=== PATIENT | female | born 1970 | race Caucasian/White ===

== ENCOUNTER 2019-09-22 10:23 | Outpatient (CLI) | payer BC, SELFPAY ==
--- NOTE | 2019-09-25 14:29 | WPDPFTINT ---
PFT Interpretation PFT Interpretation: This PFT met all criteria for ATS standards and reproducibility FEV/FVC post bronchodilator 87% FEV1 91% FVC 80% TLC 85% RV 88% RV/TLC 36% DLCO 50% or 12.8 literswhen adjusted for alveolar volume but not adjusted for hemoglobin Flow volume loops were normal Impression: Moderate reduced diffusion capacity without significant obstruction or restriction. In the abcence of anemia or pulmonary hypertension, intrinsic lung disease may be present. Clinical correlation is advised.
== END 2019-09-22 10:24 | disposition home or self-care (01) ==
LOC: ANHPFT 10:24
PROVIDERS: PCP Internal Medicine; Visit Provider Internal Medicine Critical Care Medicine
DX: R05 Cough (principal); R06.02 Shortness of breath; R94.2 Abnormal results of pulmonary function studies
CPT/HCPCS: 94060; 94726; 94729

== ENCOUNTER 2019-10-14 17:04 | Outpatient (CLI) | payer BC, SELFPAY ==
--- NOTE | ~2019-10-14 | CT_ITS ---
EXAMINATION: CT chest wo con DATE: 10/14/2019 17:39 INDICATION: Chronic cough TECHNIQUE: Computed tomography (CT) of the chest was performed without intravenous contrast. The dose -length product was 486.93 mGy-cm. Automated exposure control and iterative reconstruction technique were employed. COMPARISON: None FINDINGS: No thoracic lymphadenopathy. Heart size normal. No significant vascular abnormality. No ple ural or pericardial effusion. There are subtle right upper lobe groundglass opacities. No endobronchi al lesions. Mild thoracic spondylosis. No acute osseous abnormality. IMPRESSION: 1. Subtle patchy right upper lobe groundglass opacities, most likely infectious/inflammatory. Reviewed, dictated and finalized at location A. IMPRESSION: 1. Subtle patchy right upper lobe groundglass opacities, most likely infectious /inflammatory.
== END 2019-10-14 17:05 | disposition home or self-care (01) ==
LOC: ANHIMG 17:11
PROVIDERS: PCP Internal Medicine; Visit Provider Nurse Practitioner Family
DX: R05 Cough (principal)
CPT/HCPCS: 71250

== ENCOUNTER 2019-10-25 12:44 | Outpatient (CLI) | payer BC, SELFPAY ==
--- NOTE | ~2019-10-25 | XR_ITS ---
EXAMINATION: XR chest 2V DATE: 10/25/2019 13:02 INDICATION: Shortness of breath TECHNIQUE: Frontal and lateral views of the chest are obtained COMPARISON: 06/18/2019 FINDINGS: There are subtle opacities of the right lung. There is no pleural effusion or pneumothorax. The cardiomediastinal silhouette is normal. There is mild thoracic spondylosis. IMPRESSION: 1. Subtle opacity of the right lung, likely infectious or inflammatory. Recommend followup radiograph s in 10-14 days after appropriate therapy to evaluate for improvement/resolution. Reviewed, dictated and finalized at location B. IMPRESSION: 1. Subtle opacity of the right lung, likely infectious or inflammatory. Recomme nd followup radiographs in 10-14 days after appropriate therapy to evaluate for improvement/resolution.
--- NOTE | ~2019-10-25 | NM_ITS ---
NM lung vent and perfusion INDICATION: Loss of breath TECHNIQUE: The patient inhaled aerosolized 8.9 mCi xenon-133. Following ventilation scan, 5 mCi Tc 9 9m MAA was injected intravenously for perfusion images. Multiple images were then acquired. COMPARISON: Chest x-ray dated 10/25/2019 FINDINGS: The comparison chest radiograph demonstrates no pulmonary infiltrates or pleural fluid. Th e perfusion scan is normal. The aerosol in images show uniform deposition throughout the lungs. IMPRESSION: 1: Normal ventilation and perfusion images. Reviewed, dictated and finalized at location A.
== END 2019-10-25 12:45 | disposition home or self-care (01) ==
PROVIDERS: PCP Internal Medicine; Visit Provider Internal Medicine Critical Care Medicine
DX: R06.02 Shortness of breath (principal)
CPT/HCPCS: 71046; 78582; A9540; A9558

== ENCOUNTER 2019-11-01 13:35 | Outpatient (CLI) | payer BC, SELFPAY ==
--- NOTE | 2019-11-01 13:45 | ECHO_ITS ---
Patient Info Name: Laurel Whittaker Age: 49 years : 1970 Gender: Female Ht: 62 in Wt: 220 lbs BSA: 2.14 m2 HR: 63 bpm BP: 131 / 95 mmHg Technical Quality: Good Exam Date: 11/01/2019 2:08 PM Exam Location: [facility] Patient Status: Outpatient Admit Date: 11/01/2019 Staff Ordering Physician: Maisha Monahan MD Frame Stylist: Newton Ayon RDCS, RT Attending Provider: Maisha Monahan MD Referring Physician: Hero DENNEY; Exam Type: CA echo doppler color flow Study Info Indications R06.02 - Shortness of breath Complete two-dimensional, color flow and Doppler transthoracic echocardiogram is performed. Summary 1. Left ventricular chamber dimension is normal. 2. Left ventricular systolic function is normal, estimated at 60-65%. 3. The left ventricular diastolic function is grade II diastolic dysfunction. 4. E/e' 8 is minimally elevated. 5. There is mild to moderate aortic valve regurgitation. Left Ventricle E/e' 8 is minimally elevated. Left ventricular chamber dimension is normal. Left ventricular systolic function is normal, estimated at 60-65%. The left ventricular diastolic function is grade II diastolic dysfunction. Right Ventricle Right ventricular chamber dimension is normal. Right ventricular systolic function is normal. Left Atria Left atrial chamber dimension is normal. Right Atria Right atrial chamber dimension is normal. Aortic Valve The aortic valve is trileaflet. There is no aortic valve stenosis. There is mild to moderate aortic valve regurgitation. Pulmonic Valve There is no pulmonic regurgitation. Mitral Valve There is no mitral valve stenosis. There is no mitral valve regurgitation. Tricuspid Valve There is no tricuspid valve regurgitation. Pericardium/Pleural There is no pericardial effusion. Inferior Vena Cava Normal inferior vena cava with >50% collapse upon inspiration consistent with normal right atrial pressure, 5 mmHg. Aorta The aortic root size at the sinus of Valsalva is normal. Left Ventricular Outflow Tract Name Value Normal LVOT 2D LVOT Diameter 1.9 cm LVOT Doppler LVOT Peak Gradient 7 mmHg LVOT Mean Gradient 3 mmHg LVOT VTI 23 cm LVOT VTI/AV VTI Ratio 0.8 LVOT Stroke Volume 67 ml LVOT CO 6.7 l/min LVOT CI 3.1 l/min/m2 Pulmonic Valve Name Value Normal PV Doppler PV Peak Gradient 3 mmHg Mitral Valve Name Value Normal MV Doppler
== END 2019-11-01 13:36 | disposition home or self-care (01) ==
PROVIDERS: PCP Internal Medicine; Visit Provider Internal Medicine Critical Care Medicine
DX: R06.02 Shortness of breath (principal)
CPT/HCPCS: 93306

== ENCOUNTER 2019-11-08 14:10 | Outpatient (CLI) | payer BC, SELFPAY ==
--- NOTE | ~2019-11-08 | XR_ITS ---
XR chest 2V DATE: 11/08/2019 14:35 INDICATION: Subtle radiographic opacity of right lung reported on 10/24/2021 view chest radiographic e xamination TECHNIQUE: PA and lateral views COMPARISON: 10/21/2019 PA and lateral chest FINDINGS: Normal heart size. No hilar or mediastinal enlargement. No pulmonary infiltrate or consolid ation, pleural effusion or pulmonary vascular congestion or pneumothorax. IMPRESSION: Negative Reviewed, dictated and finalized at location A. IMPRESSION: Negative
== END 2019-11-08 14:11 | disposition home or self-care (01) ==
LOC: ANHIMG 14:14
PROVIDERS: PCP Internal Medicine; Visit Provider Internal Medicine Critical Care Medicine
DX: R93.89 Abnormal findings on diagnostic imaging of other specified body structures (principal)
CPT/HCPCS: 71046

== ENCOUNTER 2019-12-26 00:25 | Outpatient (CLI) | payer BC, SELFPAY ==
[2019-12-26 16:10] LABS: SARS-CoV-2 RNA PCR Negative
== END 2019-12-26 00:26 | disposition home or self-care (01) ==
LOC: ANHCOVIDDT 00:25
PROVIDERS: PCP Internal Medicine; Visit Provider Internal Medicine Critical Care Medicine
DX: R05 Cough (principal); Z20.828 Contact with and (suspected) exposure to other viral communicable diseases
CPT/HCPCS: 87635; C9803; U0003

== ENCOUNTER 2019-12-28 01:44 | Day surgery (SDC) | payer BC, SELFPAY ==
[2019-12-22 10:34] VITALS: BMI 39.7
[2019-12-28] VITALS (7 sets, daily range): BP systolic 118–137; BP diastolic 51–87; PULSE 70–93; RESP 16–26; TEMP 36.4–36.7; O2SAT 97–100; BMI 39.9
--- NOTE | 2019-12-28 09:26 | P.PNAN_ITS ---
Anes - Initial Pre Proc Eval Procedure: Operation Date: 12/28/19 12:00 Proposed Procedures p Bronchoscopy - Maisha Monahan MD Date/Time: 12/28/19 09:26 Surgeon: Maisha Monahan MD Pre Op Diagnosis: Chronic Cough Patient Data Age: 49 Gender: F Height: 5 ft 2 in Weight: 98.6 kg Allergies Allergy/AdvReac Type Severity Reaction Status Date / Time amoxicillin Allergy Mild Itching, Verified 12/28/19 10:48 rash Home Medications Medication Instructions Recorded Confirmed Type budesonide-formoterol [Symbicort] 2 puff INHALATION Q12H PRN 12/22/19 12/28/19 History ibuprofen 200 mg PO Q6H PRN 12/22/19 12/28/19 History Patient hx anesthesia problems: none Family hx anesthesia problems: none [facility] Past Medical History Medical History (Updated 12/28/19 @ 09:26 by Hossein Flor MD) Asthma Elevated liver enzymes Migraine Surgical History Surgical History H/O tubal ligation Social History Social History Smoking status: Never smoker Second hand tobacco smoke exposure: No Alcohol intake: never Anes - Eval Final PreProcedure Day of Procedure 12/28/19 09:26 Patient weight: overweight Heart: regular rate and rhythm Lungs: clear to auscultation Airway: Mallampati scale class III Neurological: alert and oriented Last oral intake: >/= 8 hours ASA classification: III Emergent: no Anesthetic plan: proceed Anesthesia type and monitoring: general ETT and standard monitoring Informed Consent: The patient's anesthetic plan and its attendant risks and benefits were discussed with the patient/family/POA. Questions were solicited and answers provided to the satisfaction of the patient/family/POA.
[2019-12-28] MEDS: LACTATED RINGERS 1,000 ML 150 ML IV CONT (11:12)
--- NOTE | 2019-12-28 12:54 | SUR.OPER ---
Lidocaine 2% 6 ml injected and 250 ml NS injected during bronchoscopy - 107 ml returned from washing
[2019-12-28 14:33] LABS: Appearance Bronchial Fluid Cloudy; Color Bronchial Fluid Colorless; Lymphocytes Bronchial Fluid 30 %; Monocytes Bronchial Fluid 3 %; Neutrophils Bronchial Fluid 18 %; Source Bronchial Fluid Bronchial Lavage
[2019-12-28 14:34] LABS: Macrophages Bronchial Fluid 8; Other Cells Bronchial Fluid 41 %
[2020-01-01 04:34] LABS: Herpes Simplex Type 1 DNA PCR Not Detected (Not Detected); Herpes Simplex Type 2 DNA PCR Not Detected (Not Detected)
== END 2019-12-28 14:04 | disposition home or self-care (01) ==
PROVIDERS: PCP Internal Medicine; Visit Provider Internal Medicine Critical Care Medicine
PROC: 0BJ08ZZ Inspection of Tracheobronchial Tree, Via Natural or Artificial Opening Endoscopic (ICD-10-PCS; CPT 31622; principal; 2019-12-28 12:00)
DX: R05 Cough (principal); J45.909 Unspecified asthma, uncomplicated; I35.1 Nonrheumatic aortic (valve) insufficiency
CPT/HCPCS: 31624; 36415; 85999; 87015; 87070; 87075; 87102; 87116; 87205; 87206; 87252; 87529; J1100; J2405; J2704; J7120

== ENCOUNTER 2020-01-17 15:30 | Outpatient (CLI) | payer BC, SELFPAY ==
--- NOTE | ~2020-01-17 | XR_ITS ---
EXAMINATION: XR chest 2V DATE: 01/17/2020 15:59 INDICATION: Asthma presenting with cough TECHNIQUE: PA and lateral views of the chest were obtained. COMPARISON: Chest radiograph dated 11/08/2019 FINDINGS: The lungs remain clear with no focal airspace opacities, pulmonary edema, pleural effusion or pneumot horax. The cardiomediastinal silhouette is normal. Visualized bones and soft tissues are unremarkable . IMPRESSION: 1. Normal chest radiograph. Reviewed, dictated and finalized at location A. IMPRESSION: 1. Normal chest radiograph.
== END 2020-01-17 15:31 | disposition home or self-care (01) ==
PROVIDERS: PCP Internal Medicine; Visit Provider Internal Medicine Critical Care Medicine
DX: J45.909 Unspecified asthma, uncomplicated (principal)
CPT/HCPCS: 71046

== ENCOUNTER 2020-02-29 01:07 | Outpatient (CLI) | payer BC, SELFPAY ==
[2020-02-29 19:19] LABS: SARS-CoV-2 RNA PCR Negative
== END 2020-02-29 01:08 | disposition home or self-care (01) ==
LOC: ANHCOVIDDT 01:07
PROVIDERS: Internal Medicine Critical Care Medicine; PCP Internal Medicine; Visit Provider Internal Medicine Gastroenterology
DX: Z01.818 Encounter for other preprocedural examination (principal); Z11.59 Encounter for screening for other viral diseases
CPT/HCPCS: 87635; C9803; U0003

== ENCOUNTER 2020-03-02 13:41 | Observation (INO) | payer BC, SELFPAY ==
[2020-02-22 09:18] VITALS: BMI 39.5
[2020-03-02] VITALS (30 sets, daily range): BP systolic 89–167; BP diastolic 45–125; PULSE 81–156; RESP 16–45; TEMP 36.2–36.7; O2SAT 89–100
--- NOTE | ~2020-03-02 | CT_ITS ---
EXAMINATION: CTA chest PE protocol DATE: 03/02/2020 18:11 CDT INDICATION: Cough and shortness of breath. Anxiety. TECHNIQUE: Computed tomographic angiography (CTA) of the chest was performed with 100 mL Omnipaque-35 0 intravenous contrast. The dose-length product was 832.36 mGy-cm. Maximum intensity projection 3D-re constructions of the aorta and other arteries were constructed by the technologist on a separate work station. Automated exposure control and iterative reconstruction technique were employed. COMPARISON: CT dated 10/14/2019 FINDINGS: The study is technically adequate without evidence for pulmonary artery. Heart size normal. No thoracic lymphadenopathy. No significant pleural or pericardial effusion. Bilateral lower lobe at electasis. No pneumothorax. No endobronchial lesions. No acute osseous abnormality. The upper abdomen is unremarkable. IMPRESSION: 1. No evidence for pulmonary embolism. 2: Bilateral lower lobe atelectasis. Reviewed, dictated and finalized at location A.
--- NOTE | ~2020-03-02 | XR_ITS ---
EXAMINATION: XR chest 1V portable EXAM DATE: 03/02/2020 11:38 INDICATION: Cough post anesthesia. TECHNIQUE: Portable AP frontal chest x-ray was obtained. Comparison is made to prior examination from 01/17/2020. FINDINGS: The lungs are clear. There are no pleural effusions. The cardiomediastinal silhouette is within normal limits. There is no pneumothorax suspected. The bones and soft tissues are unremarkab le. IMPRESSION: No acute cardiopulmonary findings. Reviewed, dictated and finalized at location A.
--- NOTE | 2020-03-02 07:40 | P.PNAN_ITS ---
Anes - Initial Pre Proc Eval Procedure: Operation Date: 03/02/20 09:45 Proposed Procedures p Esophagogastroduodenoscopy And Screening Colonoscopy - Jonathan Clemens MD Date/Time: 03/02/20 07:40 Surgeon: Jonathan Ryan MD Pre Op Diagnosis: Chronic Cough/ Neoplasm Screening Patient Data Age: 50 Gender: F Height: 1.57 m Weight: 98 kg Allergies Allergy/AdvReac Type Severity Reaction Status Date / Time amoxicillin Allergy Mild Itching, Verified 03/02/20 08:50 rash Home Medications Medication Instructions Recorded Confirmed Type budesonide-formoterol [Symbicort] 2 puff INHALATION Q12H PRN 12/22/19 02/22/20 History ibuprofen 200 mg PO Q6H PRN 12/22/19 02/22/20 History gabapentin 100 mg capsule 100 mg PO TID 30 Days #90 cap 01/17/20 02/22/20 Rx Patient hx anesthesia problems: none Family hx anesthesia problems: none PMFSH Past Medical History Medical History (Updated 03/02/20 @ 07:41 by Dae Neal MD) Aortic regurgitation Asthma Colon cancer screening Elevated LFTs Elevated liver enzymes Migraine Obesity Surgical History Surgical History H/O tubal ligation Social History Social History Smoking status: Never smoker Second hand tobacco smoke exposure: No Alcohol intake: never Substance use: never 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 Questions were solicited and answers provided to the satisfaction of the patient/family/POA.
[2020-03-02] MEDS: LACTATED RINGERS 1,000 ML 150 ML IV CONT (09:04)
--- NOTE | 2020-03-02 09:28 | WPDHPUPDATE1 ---
History and Physical Update Update Date/Time: 03/02/20 09:28 History and Physical has been reviewed, including an updated exam of the patient. There are NO changes in the patient's condition. Risks, benefits, and alternatives have been discussed and questions answered. Patient agrees to proceed with procedure.
[2020-03-02] MEDS: MIDAZOLAM HCL 2 MG/2 ML VIAL 1 MG IV PUSH ×2 (10:55→11:12)
[2020-03-02] MEDS: ALBUTEROL SULFATE (*SP) AEROSOL 1 PUFF 2 PUFF INHALATION (11:04)
[2020-03-02] MEDS: ALBUTEROL SULFATE NEB 2.5 MG/3 ML INH 1.25 MG INHALATION (11:12)
[2020-03-02] MEDS: MIDAZOLAM HCL 2 MG/2 ML VIAL IV PUSH ×2 (11:12→12:04)
--- NOTE | 2020-03-02 11:31 | ECG_ITS ---
Measurements Intervals [place] Rate: 103 P: 52 ID: [id number] QRS: 29 QRSD: 80 T: 37 QT: 326 QTc: 428 Interpretive Statements SINUS TACHYCARDIA BASELINE ARTIFACT- I, II, III, AVR, AVL, AVF, V1 BORDERLINE ECG Electronically Signed On 03-02-2020 16:23:30 CDT by David Mendoza D.O.
--- NOTE | 2020-03-02 12:32 | SUR.PHASEII ---
Addendum entered by Tosin Ruiz RN 03/02/20 13:15: NO ARTERIAL BLOOD GAS NEEDED PER DR DIAZ. Original Note: PT WOKE UP IN RECOVERY COUGHING, SHORT OF BREATH. PT 100% ON ROOM AIR VITAL SIGNS STABLE. ALBUTEROL INHALER GIVEN BY DR DIAZ ANESTHESIA WITH NO RELIEF. NEBULIZER TREATMENT GIVEN BY RESPIRATORY THERAPY WITH NO RELIEF. FENTANYL AND VERSED ORDERED BY DR DIAZ (SEE MAR) WITH SOME RELIEF, PT APPEARS MORE CALM. PT'S AT BEDSIDE. PT COMPLAINS OF CHEST PAIN EKG ORDERED RESULTS GIVEN TO DR DIAZ. CXR DONE AT BEDSIDE ORDERED BY DR SALDIVAR. DESPITE MEDICATION PT CONTINUES WITH SHORTNESS OF BREATH. ORDER FROM DR SALDIVAR TO ADMIT TO IMU.
--- NOTE | 2020-03-02 12:49 | PC.NURSE ---
This patient, Laurel Whittaker, was admitted to IMU Room 207-01. Patient/family oriented to hospital policies and general routines including ID bracelet, bed and alarms, visiting hours, pain management, procedures, bathroom and other care routines, personal items, smoking policy, room service/diet, and visiting hours. Valuables list has been completed. Information on how to activate the Rapid Response Team has been discussed. Patient/Family are encouraged to report perceived risks to care and to ask questions if they do not understand what they are told or what they should do.
--- NOTE | 2020-03-02 12:53 | WPDGICN ---
Assessment and Plan Assessment and plan (1) Hyperventilating: Code(s): R06.4 - Hyperventilation Status: Acute Assessment and Plan: cxr and ekg unrevealing. She will be admitted to hospitalist service for monitoring and diagnostic procedure as indicated no obvious complications with endoscopy, only took biopsies and colonoscopy was unremarkable (2) Chest discomfort: Code(s): R07.89 - Other chest pain Status: Acute Assessment and Plan: will admit to [facility] for treatment and monitoring aware of plan (3) Cough: Code(s): R05 - Cough Status: Acute Assessment and Plan: work up has been negative, may need ent evaluation at some point GI Consult Note Consult date/time: 03/02/20 12:53 Reason for consult: hyperventilation and cough after elective EGD/colonoscopy HPI: Laurel Whittaker is a 50 year old female with chronic cough that had extensive work up by pulmonary including CT chest and bronchoscopy, also trial of inhalers and nexium did not help, finally she came to see me at the office and we decided to proceed today with EGD to assess for silent reflux among other GI conditions, she also had a colonoscopy today for colon cancer screening given her age. EGD without any findings, only took random biopsies of esophagus and stomach but no complications, then proceed with colonoscopy that was normal, only mild diverticulosis. During her procedure she did quite well. Soon after procedure and when she was taken to recovery room and woke up from anesthesia (we used MAC anesthesia given by anesthesiologist) she started with intractable cough, hyperventilating. Respiratory therapist gave breathing treatment but did not help, then given more versed but symptoms got worse, then having chest discomfort. CXR was normal, EKG sinus tachycardia. Given persistent symptoms for more than 1.5 hours after endoscopy, we decided to keep her in the hospital for observation. This was discussed with at bedside. He denies that she has h/o panick attack. 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 Home Medications and Allergies Home Medications Medication Instructions Recorded Confirmed Type budesonide-formoterol [Symbicort] 2 puff INHALATION Q12H PRN 12/22/19 02/22/20 History ibuprofen 200 mg PO Q6H PRN 12/22/19 02/22/20 History gabapentin 100 mg capsule 100 mg PO TID 30 Days #90 cap 01/17/20 02/22/20 Rx Allergies Allergy/AdvReac Type Severity Reaction Status Date / Time amoxicillin Allergy Mild Itching, Verified 03/02/20 08:50 rash Vital Signs Vital Signs - 24 hr 03/02/20 08:52 03/02/20 11:00 03/02/20 11:10 Temperature 97.5 F L Pulse Rate 95 147 H 134 H Respiratory Rate 20 42 H 36 H Blood Pressure 133/97 H Pulse Oximetry 97 Exam Const: General: uncomfortable Other: hyperventilating with RR ~ 35-40 but normal O2 sat 100% HENMT: General nose exam: Normal nares present Eyes: General: appearance normal, both eyes and all related structures Neck: Neck: no JVD Chest: Other: normal exam, no crepitus, no subcutaneous emphysema Resp: Auscultation: no rales and no rhonchi Other: normal auscultation but she is tachypneic Cardio: Other: sinus tach GI: Inspectio
[2020-03-02] MEDS: NALOXONE HCL 0.4 MG/ML VIAL IV PUSH (13:22)
[2020-03-02 13:35] LABS: Alveolar/Arterial O2 Gradient 426.5 mmHg; Base Excess ABG -0.4 mEq/l (+/-2.0); Fractional Inspired Oxygen 100 %; HCO3 ABG 15.3 mEq/l (22.0-26.0); Oxygen Content ABG 23.7 %vol (16.0-22.0); Oxygen Saturation ABG 99.8 % (95.0-100.0); Oxyhemoglobin 98.6 % THb (90.0-100.0); PO2 ABG 273.3 mmHg (80.0-100.0); PO2 FiO2 Ratio Arterial Blood 2.73 %; Total Hemoglobin 16.7 g/dL (12.0-18.0)
[2020-03-02 13:36] LABS: Device NON-REBREATHER MASK; Modified Allen's Test Pass; PCO2 ABG 13.2 mmHg (35.0-45.0); Site Drawn RIGHT RADIAL; pH ABG 7.683 (7.350-7.450)
[2020-03-02 13:48] LABS: Troponin I < 0.012 ng/mL (0.000-0.034)
[2020-03-02] MEDS: methylPREDNISolone SOD SUCC 125 MG VIAL (13:52)
[2020-03-02] MEDS: FUROSEMIDE INJ 40 MG/4 ML VIAL (13:52)
[2020-03-02] MEDS: SODIUM BICARBONATE 8.4% 50 MEQ/50 ML VIAL (13:52)
--- NOTE | 2020-03-02 13:55 | PM.IMHP ---
H&P: HPI History of Present Illness Date/Time: 03/02/20 13:55 Chief complaint: Chronic Cough/ Neoplasm Screening Narrative: Laurel Whittaker is a 50 year old female Who has a history of a chronic cough. December of this year was seen by kiln cleaner her chest x-ray November 07 of this year was normal no infiltrate. She has a nonproductive cough. Echo on 11/01/2019 was read as [id number] aortic regurgitation. EF to 60 65%. Grade 2 diastolic dysfunction. She is a nonsmoker. She was also evaluated by cardiology group. Alpha 1 antitrypsin phenotype is PI mm normal an alpha-1 level is 130 normal. Rheumatoid factor less than 14. SINAN screen is negative. Patient also had PFT interpretation met all criteria for ats standards and reproducibility. Moderate reduction diffusion capacity without significant obstruction or restriction. The abscess of pulmonary hypertension, intrinsic lung disease may be present. The patient had been treated for allergies as well as gastroesophageal reflux disease for her chronic cough. Dr. Watkins is had the patient come in outpatient for endoscopies he had performed EGD and colonoscopy. Was reported to me that she had no abnormalities. The patient had Versed several times and fentanyl as well. The patient was not waking up and was hyperventilating. She had been hyperventilating for at least 1 hour. I attempted to give for nor can x1 with performed ABGs which of course was showing alkalosis. Chest x-ray was read as clear. I did have the elementary science teacher assessed the patient and he felt that there was some pulmonary edema there so he gave her some IV Lasix. We did place her on a BiPAP machine. She was also given Solu-Medrol. She was given several doses of Ativan. She finally was calm. Patient's COVID-19 test on 02/28 was negative. On 12/28/2019 she had a bronch wash which HSV 1 DNA PCR was not detected. Respiratory virus culture not reportable. Patient was not responding by Physical touch And she was not opening her eyes. the nor can did not help per the patient started to come down after she had several doses of Ativan and was placed on BiPAP. 12/6 with a rate of 12. Patient's ABGs today pH 7.683. PCO2 13.2. PO2 is 273.3. Bicarb 15.3. Troponin was negative. EKG was read as sinus tachycardia. I have spent at least an hour and the IMU with the patient. Also spoke with the elementary science teacher and GI specialist. the patient was complaining of chest pain down and then GI lab. They obtained an EKG which was read as sinus tachycardia. First troponin was negative. Patient was hyperventilating. No CTA was performed at this time due to patient's condition. As soon as patient is breathing better we will be able to get a CT pulmonary.Date of service 03/02/2020 Review of Systems Review of Systems: ROS unobtainable: Yes unobtainable due to medical condition Constitutional: Constitutional: Reports as per HPI and Reports no additional constitutional complaints Eyes: Eyes: Reports as per HPI and Reports no additional eye complaints ENT: Reports system reviewed and no additional complaints, except as documented and Reports Normal hearing present Cardiovascular: Cardiovascular: Reports no additional cardiovascular complaints Respiratory: Respiratory: Reports as per HPI and Reports dyspnea Gastrointestinal: Gastrointestinal: Reports as per HPI and Reports no additional gastrointestinal complaints Musculoskeletal: Musculoskeletal: Reports no additional musculoskeletal complaints Integumentary/Breasts: Skin/Breast: Reports system reviewed and no additional complaints, except as docu and Reports as per HPI Neurologic: Reports system reviewed and no additional complaints, except as documented, Reports as per HPI and Reports Normal hearing present Psychiatric: Psychiatric: Reports no additional psychiatric complaints and Reports as per HPI Endocrine: Endocrine: Reports no additional endocrine complaints Hematologic/Lymphati
[2020-03-02] MEDS: IPRATROPIUM BR 0.02% INH SOLN 0.5 MG/2.5 ML VIAL 1 MG INHALATION (14:17)
[2020-03-02 14:50] LABS: Anion Gap 12.2 mmol/L (7-16); Blood Urea Nitrogen 9 mg/dL (7-17); Calcium 9.7 mg/dL (8.4-10.2); Carbon Dioxide 22 mmol/L (22-30); Chloride 109 mmol/L (98-107); Estimated CRCL calculation 72 ml/min; Estimated Glomerular Filt Rate > 60; Glucose 99 mg/dL (65-105); Potassium 4.2 mmol/L (3.4-5.0); Sodium 139 mmol/L (137-145)
[2020-03-02 16:47] LABS: Troponin I < 0.012 ng/mL (0.000-0.034)
[2020-03-02 19:38] LABS: Troponin I < 0.012 ng/mL (0.000-0.034)
[2020-03-02] MEDS: methylPREDNISolone SOD SUCC 125 MG VIAL 60 MG IV PUSH (21:14)
[2020-03-03] VITALS (9 sets, daily range): BP systolic 106–128; BP diastolic 52–76; PULSE 64–104; RESP 14–23; TEMP 36–36.8; O2SAT 97–100
[2020-03-03] MEDS: methylPREDNISolone SOD SUCC 125 MG VIAL 60 MG IV PUSH ×2 (05:53→13:15)
[2020-03-03 07:13] LABS: Alanine Aminotransferase 54 U/L (4-35); Albumin Level 3.9 g/dL (3.5-5.1); Alkaline Phosphatase 100 U/L (38-126); Anion Gap 11.2 mmol/L (7-16); Aspartate Amino Transferase 30 U/L (14-36); Bilirubin,Total 0.4 mg/dL (0.2-1.3); Blood Urea Nitrogen 10 mg/dL (7-17); Calcium 9.3 mg/dL (8.4-10.2); Carbon Dioxide 24 mmol/L (22-30); Chloride 108 mmol/L (98-107); Estimated CRCL calculation 80 ml/min; Estimated Glomerular Filt Rate > 60; Glucose 146 mg/dL (65-105); Magnesium 2.5 mg/dL (1.6-2.3); Potassium 4.2 mmol/L (3.4-5.0); Sodium 139 mmol/L (137-145)
[2020-03-03 07:19] LABS: Basophils Percent Auto 0.1 % (0.2-1.2); Hematocrit 44.8 % (37.0-47.0); Hemoglobin 15.4 g/dL (12.0-15.0); Immature Granulocyte Absolute 0.04 K/mm3 (0.00-0.031); Immature Granulocyte Percent A 0.4 % (0-0.5); Lymphocytes Percent Auto 7.9 % (18.3-44.2); Mean Corpuscular HGB Conc 34.4 g/dl (32-36); Mean Corpuscular Volume 93.1 fl (80-100); Mean Platelet Volume 11.5 fl (7.4-10.4); Monocytes Absolute Auto 0.1 K/mm3 (0.1-0.6); Monocytes Percent Auto 0.6 % (2.6-8.5); Neutrophils Absolute Auto 10.4 K/mm3 (1.3-6.7); Platelet Count Result 299 k/mm3 (150-375); Red Blood Count 4.81 M/mm3 (4.2-5.4); Red Cell Distribution Width 12.6 % (11.5-14.5); White Blood Count 11.4 K/mm3 (4.5-10.0)
[2020-03-03 07:43] LABS: Lactic Acid 0.9 mmol/L (0.7-2.1)
--- NOTE | 2020-03-03 09:59 | PM.IMPN ---
Progress Note: A&P Assessment and Plan (1) Hyperventilating: Code(s): R06.4 - Hyperventilation Status: Acute (2) Chest discomfort: Code(s): R07.89 - Other chest pain Status: Acute (3) Anxiety: Code(s): F41.9 - Anxiety disorder, unspecified Status: Acute (4) Aortic regurgitation: Qualifiers: Cardiac valve disease etiology: etiology unspecified Qualified Code(s): I35.1 - Nonrheumatic aortic (valve) insufficiency Code(s): I35.1 - Nonrheumatic aortic (valve) insufficiency Status: Acute (5) Elevated LFTs: Code(s): R79.89 - Other specified abnormal findings of blood chemistry Status: Acute (6) Decreased diffusion capacity of lung: Code(s): R94.2 - Abnormal results of pulmonary function studies Status: Acute (7) Chronic cough: Code(s): R05 - Cough Status: Acute Subjective Date/time seen: 03/03/20 09:59 Interval history: Admitted 03/02 after post procedure hyperventilation (EGD and colon). Today c/o mild SS chest pressure. Increased with coughing. No related to position or activity. Mild headache. No other c/o except her chronic nonproductive cough. Objective Data Vital Signs Vital Signs: Vital Signs - 24 hr 03/02/20 10:05 03/02/20 10:15 03/02/20 10:25 Temperature Pulse Rate 81 97 85 Respiratory Rate 16 16 32 H Blood Pressure 113/74 142/71 H 157/76 H Pulse Oximetry 94 97 97 03/02/20 10:35 03/02/20 10:45 03/02/20 10:55 Temperature Pulse Rate 92 156 H 96 Respiratory Rate 32 H 28 H 34 H Blood Pressure 147/78 H 167/125 H 123/50 L Pulse Oximetry 97 89 L 99 03/02/20 11:00 03/02/20 11:05 03/02/20 11:10 Temperature Pulse Rate 147 H 100 134 H Respiratory Rate 42 H 21 H 36 H Blood Pressure 119/77 Pulse Oximetry 98 03/02/20 11:15 03/02/20 11:25 03/02/20 11:35 Temperature Pulse Rate 87 96 113 H Respiratory Rate 28 H 30 H 32 H Blood Pressure 104/69 99/47 L 121/55 L Pulse Oximetry 100 100 99 03/02/20 11:45 03/02/20 11:55 03/02/20 12:05 Temperature Pulse Rate 92 85 90 Respiratory Rate 45 H 38 H 17 Blood Pressure 107/68 107/65 112/65 Pulse Oximetry 97 97 96 03/02/20 12:15 03/02/20 12:25 03/02/20 12:35 Temperature Pulse Rate 93 89 113 H Respiratory Rate 32 H 30 H 32 H Blood Pressure 96/45 L 89/67 L 140/85 Pulse Oximetry 100 100 100 03/02/20 12:45 03/02/20 12:50 03/02/20 13:00 Temperature 97.9 F Pulse Rate 110 H 108 H 103 H Respiratory Rate 32 H 44 H Blood Pressure 132/75 140/85 Pulse Oximetry 100 99 98 03/02/20 14:00 03/02/20 14:17 03/02/20 15:15 Temperature Pulse Rate 90 94 104 H Respiratory Rate 24 H 18 18 Blood Pressure Pulse Oximetry 97 03/02/20 16:00 03/02/20 17:38 03/02/20 18:00 Temperature 98.1 F Pulse Rate 99 113 H Respiratory Rate 26 H Blood Pressure 137/87 Pulse Oximetry 98 97 03/02/20 20:00 03/02/20 22:00 03/03/20 00:00 Temperature 97.2 F L 96.8 F L Pulse Rate 133 H 114 H 100 Respiratory Rate 22 H 18 Blood Pressure 119/61 122/63 Pulse Oximetry 96 97 03/03/20 02:00 03/03/20 04:00 03/03/20 05:34 Temperature 97 F L Pulse Rate 72 64 66 Respiratory Rate 23 H Blood Pressure 106/64 Pulse Oximetry 100 03/03/20 07:55 03/03/20 08:00 Temperature 98.2 F Pulse Rate 67 Respiratory Rate 14 Blood Pressure 128/76 Pulse Oximetry 97 100 Intake/Output Intake/Output: Intake & Output 02/29/20 03/01/20 03/02/20 03/03/20 23:59 23:59 23:59 23:59 Intake Total 640 400 Output Total 2000 800 Balance -1360 -400 Meds/Results Medications: Active Medications Generic Name Dose Route Start Last Admin Trade Name Freq PRN Reason Stop Dose Admin Albuterol 2 puff 03/02/20 11:04 03/02/20 11:04 Proventil Hfa INHALATION 2 puff ONCE PRN Administration Shortness Of Breath Budesonide/Formoterol Fumarate 2 puff 03/02/20 14:34 Symbicort 160-4.5 Mcg (*Sp) Inhaler INHALATION
[2020-03-03] MEDS: GABAPENTIN 100 MG CAPSULE PO ×2 (10:03→13:13)
--- NOTE | 2020-03-03 14:37 | PM.DS ---
DS: Admitting Diagnosis Admitting Diagnosis Admitting Diagnosis: COVID-19 DS: Discharge Diagnosis Discharge Diagnosis (1) Hyperventilating: Code(s): R06.4 - Hyperventilation Status: Acute Assessment and Plan: likely due to postprocedure anxiety pulmonary CTA, troponin I, EKG, alarm security or surveillance monitor all negative (2) Chest discomfort: Code(s): R07.89 - Other chest pain Status: Acute Assessment and Plan: likely related to procedure (3) Anxiety: Code(s): F41.9 - Anxiety disorder, unspecified Status: Acute Assessment and Plan: likely related to procedure (4) Obesity: Qualifiers: Obesity type: unspecified obesity type Obesity classification: unspecified obesity classification Serious obesity comorbidity presence: unspecified whether serious comorbidity present Qualified Code(s): E66.9 - Obesity, unspecified Code(s): E66.9 - Obesity, unspecified Status: Acute (5) Aortic regurgitation: Qualifiers: Cardiac valve disease etiology: etiology unspecified Qualified Code(s): I35.1 - Nonrheumatic aortic (valve) insufficiency Code(s): I35.1 - Nonrheumatic aortic (valve) insufficiency Status: Acute (6) Elevated LFTs: Code(s): R79.89 - Other specified abnormal findings of blood chemistry Status: Acute (7) Decreased diffusion capacity of lung: Code(s): R94.2 - Abnormal results of pulmonary function studies Status: Acute (8) Chronic cough: Code(s): R05 - Cough Status: Acute DS: Summary Hospital Course Reason for hospitalization: dyspnea Hospital Course: Admitted 03/02 after post procedure hyperventilation (EGD and colon). Today c/o mild SS chest pressure. Increased with coughing. No related to position or activity. Mild headache. No other c/o except her chronic nonproductive cough. She tolerated diet and activity and was not sob on 03/03. Bordatella pertussis Ab was ordered and pending on day of discharge. Time Spent with Patient Time attestation: Total time spent providing and/or coordinating discharge services: Exam Narrative: Exam Narrative: HEENT: EOMI, PERRL, sclerae nonicteric, pharyngeal mucosa pink and intact NECK: No JVD, adenopathy, or thyromegaly CHEST: Clear to auscultation. Normal effort. HEART: NL S1/S2, regular, no murmur ABDOMEN: BS+, soft, nontender, no mass, no bruits EXTREMITIES: No cyanosis, edema, or clubbing NEUROLOGIC: CN intact and symmetric to inspection. MUSCULOSKELETAL: Tone and strength symmetric. PSYCH: Alert. Oriented to person, place, and time. DS: Data Data Completed and Pending Pending studies at discharge: Pending at discharge 03/02/20 09:51 Surgical [PTH] Routine Labs on day of discharge: Labs from last 24 hours 03/03/20 03/03/20 03/03/20 07:24 06:51 06:51 WBC 11.4 H RBC 4.81 Hgb 15.4 H Hct 44.8 MCV 93.1 MCH 32.0 MCHC 34.4 RDW 12.6 Plt Count 299 MPV 11.5 H Immature Gran % (Auto) 0.4 Neut % (Auto) 91.0 H Lymph % (Auto) 7.9 L [place] % (Auto) 0.6 L Eos % (Auto) 0.0 Baso % (Auto) 0.1 L Lymph # (Auto) 0.90 [place] # (Auto) 0.1 Eos # (Auto) 0.0 Baso # (Auto) 0.0 Abs Immat Gran (auto) 0.04 H Absolute Neuts (auto) 10.4 H Absolute Nucleated RBC 0.0 Nucleated RBC % 0.0 Sodium Potassium Chloride Carbon Dioxide Anion Gap BUN Creatinine Estim Creat Clear Calc Estimated GFR Glucose Lactic Acid 0.9 Calcium Magnesium Total Bilirubin AST ALT Alkaline Phosphatase Troponin I Total Protein Albumin TSH (Reflex) 1.530 B. pertussis IgG (MAID) B. pertussis IgA Ab 03/03/20 03/03/20 03/02/20 06:43 06:34 19:11 WBC RBC Hgb Hct MCV MCH MCHC RDW Plt Count MPV Immature Gran % (Auto) Neut % (Auto) Lymph % (Auto) [place] % (Auto) Eos % (Auto)
== END 2020-03-03 15:17 | disposition home or self-care (01) ==
LOC: ANHENDO 15:29 → ANHIMU 03-03 14:40
PROVIDERS: Internal Medicine Gastroenterology; Nurse Practitioner; Admitting Provider Family Medicine; PCP Internal Medicine; Visit Provider Internal Medicine
PROC: 0DJ08ZZ Inspection of Upper Intestinal Tract, Via Natural or Artificial Opening Endoscopic (ICD-10-PCS; CPT 43235; principal; 2020-03-02 09:45)
DX: R06.4 Hyperventilation (principal); F41.9 Anxiety disorder, unspecified; R07.89 Other chest pain; R05 Cough; R94.2 Abnormal results of pulmonary function studies; R06.83 Snoring; J45.909 Unspecified asthma, uncomplicated; I35.1 Nonrheumatic aortic (valve) insufficiency; E66.9 Obesity, unspecified; R79.89 Other specified abnormal findings of blood chemistry; Z68.39 Body mass index [BMI] 39.0-39.9, adult
CPT/HCPCS: 45378; 43239; 36415; 36600; 71045; 71275; 80048; 80053; 82805; 83605; 83735; 84443; 84484; 85025; 86615; 88305; 93005; 94002; 94640; 94660; 96361; 96374; 96375; 96376; A9270; G0378; G0379; J1940; J2060; J2250; J2310; J2704; J2930; J3010; J7120; Q9967

== ENCOUNTER 2022-01-07 16:31 | Outpatient (CLI) | payer BC, SELFPAY ==
--- NOTE | ~2022-01-07 | MR_ITS ---
EXAMINATION: MR brain IAC wo con DATE: 01/07/2022 17:22 INDICATION: Left hemiparesis. TECHNIQUE: Magnetic resonance imaging (MRI) of the brain, brainstem, and internal auditory canals was performed without intravenous contrast. COMPARISON: None. FINDINGS: In the medial right frontoparietal region, there is a 1.8 cm mass of increased T2-weighted signal intensity, decreased T1-weighted signal intensity, and decreased susceptibility-weighted signa l intensity. There is increased T2-weighted signal intensity in the surrounding white matter in an ar ea measuring 4.4 x 3.0 cm, which may be vasogenic edema. There is no acute ischemic infarct. The vent ricles are normal in size. The paranasal sinuses are clear. The orbits are normal. The internal audit ory canals and inner and middle ears are normal. The mastoid air cells are normal. IMPRESSION: 1. 1.8 cm mass in right frontoparietal region suspicious for metastatic disease or glioblastoma. I ca lled this result to Dr. Freed. Postcontrast brain MRI images are recommended. Reviewed, dictated and finalized at location A. IMPRESSION: 1. 1.8 cm mass in right frontoparietal region suspicious for metastatic disease or glioblastoma. I called this result to Dr. Freed. Postcontrast brain MRI images are recommended.
== END 2022-01-07 16:32 | disposition home or self-care (01) ==
PROVIDERS: PCP Internal Medicine; Visit Provider Internal Medicine
DX: R53.1 Weakness (principal); R93.0 Abnormal findings on diagnostic imaging of skull and head, not elsewhere classified
CPT/HCPCS: 70551

== ENCOUNTER 2022-04-28 11:30 | Emergency (ER) | payer BC, SELFPAY ==
[2022-04-28] VITALS (32 sets, daily range): BP systolic 118–171; BP diastolic 53–97; PULSE 82–117; RESP 15–30; TEMP 37.3–39.2; O2SAT 94–100
--- NOTE | ~2022-04-28 | XR_ITS ---
EXAMINATION: XR chest ET placement DATE: 04/28/2022 12:48 INDICATION: Altered mental status. TECHNIQUE: A single frontal view of the chest was obtained. COMPARISON: Chest single view 03/02/2020, chest CT 03/02/2020 FINDINGS: There is a diffuse interstitial pattern in the lungs. No pleural effusion or pneumothorax. The heart size is normal. The endotracheal tube tip is 1.9 cm above the chelly. There is a right inte rnal jugular port with tip in proximal right atrium. IMPRESSION: 1. Diffuse interstitial pattern in the lungs, consistent with mild pulmonary edema versus drug reacti on versus pneumonia. Reviewed, dictated and finalized at location A. IMPRESSION: 1. Diffuse interstitial pattern in the lungs, consistent with mild pulmonary ed rené versus drug reaction versus pneumonia.
--- NOTE | ~2022-04-28 | CT_ITS ---
EXAMINATION: CT brain wo con INDICATION: Altered mental status, recent brain tumor resection COMPARISON: MRI, 01/07/2022 TECHNIQUE: Standard unenhanced head CT. The dose-length product (DLP) was 605.33 mGy-cm. The mA was a djusted according to patient size. Iterative reconstruction technique was employed. FINDINGS: There are changes of right frontoparietal glioblastoma resection. There is a large amount o f vasogenic edema right frontoparietal region. No intracranial hemorrhage is identified. There is mil d mass effect on the right lateral ventricle. There are approximately 4 mm right to left midline shif t. The basal cisterns are patent. The orbits are normal. The paranasal sinuses, mastoids and calvariu m are normal. IMPRESSION: 1. Changes of interval right frontoparietal glioblastoma resection with vasogenic edema in the right frontoparietal region which could be postsurgical and/or postradiation. Small amount of mass effect a nd midline shift could also be due to treatment change however correlation with any available interva l imaging would be recommended. Reviewed, dictated and finalized at location A. IMPRESSION: 1. Changes of interval right frontoparietal glioblastoma resection with vasogen ic edema in the right frontoparietal region which could be postsurgical and/or postradiation. Small amount of mass effect and midline shift could also be due to treatment change however correlation with any available interval imaging wou ld be recommended.
--- NOTE | ~2022-04-28 | XR_ITS ---
EXAMINATION: XR abdomen NG/feed tube insert INDICATION: Nasogastric tube placement TECHNIQUE: Portable AP KUB-[id number] at 1411 hours COMPARISON: None available FINDINGS: The nasogastric tube is in the stomach. No dilated loops of bowel are evident. Diffuse inte rstitial opacities in the lungs are unchanged. IMPRESSION: 1. Nasogastric tube in the stomach. Reviewed, dictated and finalized at location A.
--- NOTE | 2022-04-28 11:38 | ECG_ITS ---
Measurements Intervals [place] Rate: 95 P: 34 DC: 137 QRS: -2 QRSD: 93 T: 13 QT: 312 QTc: 393 Interpretive Statements SINUS RHYTHM VOLTAGE CRITERIA FOR LVH CONSIDER INFERIOR INFARCT, AGE INDETERMINATE BASELINE ARTIFACT- I, II, III, AVR, AVL, AVF, V6 ABNORMAL ECG COMPARED TO ECG 03/02/2020 11:58:06 HEART RATE HAS DECREASED Electronically Signed On 04-28-2022 11:58:41 CDT by David Mendoza D.O.
[2022-04-28 11:51] LABS: Glucose Point of Care 153 mg/dl (65-105)
--- NOTE | 2022-04-28 12:00 | ED.AMS ---
HPI - Altered Mental Status General Chief Complaint: Altered Mental Status Stated Complaint: altered Time Seen by Provider: 04/28/22 11:47 History of Present Illness HPI narrative: Pt presents with because he was unable to get her to wake up. Pt has history of brain tumor and has completed chemo and radiation recently. Pt was at rehab this morning and was a bit listless but was responding. states that in car on way home he was unable to get her to respond at all. Related Data Home Medications Medication Instructions Recorded Confirmed ibuprofen 200 mg tablet 200 mg PO Q6H PRN Headache 12/22/19 03/07/22 acetaminophen 325 mg capsule 325 mg PO Q6H PRN 03/07/22 03/07/22 cholecalciferol (vitamin D3) 125 125 mcg PO DAILY 03/07/22 03/07/22 mcg (5,000 unit) capsule coenzyme Q10 100 mg capsule 100 mg PO DAILY 03/07/22 03/07/22 docusate sodium 100 mg capsule 100 mg PO DAILY 03/07/22 03/07/22 famotidine 20 mg tablet 20 mg PO DAILY 03/07/22 03/07/22 ondansetron HCl 8 mg tablet 8 mg PO Q12H 03/07/22 03/07/22 oxycodone 5 mg capsule 5 mg PO Q8H PRN 03/07/22 03/07/22 prochlorperazine maleate 10 mg 10 mg PO Q8H PRN 03/07/22 03/07/22 tablet ramelteon 8 mg tablet 8 mg PO QHS 03/07/22 03/07/22 temozolomide 140 mg capsule 140 mg PO DAILY 03/07/22 03/07/22 temozolomide 20 mg capsule PO 03/07/22 03/07/22 thiamine HCl (vitamin B1) 100 mg 50 mg PO DAILY 03/07/22 03/07/22 tablet Allergies Allergy/AdvReac Type Severity Reaction Status Date / Time amoxicillin Allergy Mild Itching, Verified 03/07/22 11:01 rash Review of Systems Review of Systems: ROS unobtainable: Yes unobtainable due to mental status PMFSH Past Medical History Medical History (Updated 04/28/22 @ 13:22 by Lion Gan III, DO) Aortic regurgitation Asthma Chest discomfort Colon cancer screening Diastolic dysfunction grade 2 Elevated LFTs Elevated liver enzymes Hyperventilating Migraine Obesity Surgical History Surgical History H/O tubal ligation History of bronchoscopy History of colonoscopy History of endoscopy Family History Family History Mother Patient's mother is in good health Cerebrovascular accident Father Patient's father is Sibling Patient's brother is Social History Social History Social History: The patient is to Lv And he is a durable power finance attorney for healthcare. the patient is a full code. She has 2 children a son and a daughter. 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 Lifelong nonsmoker. The states that she does not use marijuana illicit drugs or alcohol. 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 HENMT: Head: normal to inspection Mouth: Yes Normal oral and palatal mucosa present Eyes: Conjunctivae: conjunctivae normal Pupils: Equal, round and reactive pupils present Neck: Neck: normal visual inspection and no lymphadenopathy Chest: Chest palpation & inspection: normal inspection of the chest Resp: Effort & Inspection: normal respiratory effort Cardio: Rate: regular rate Rhythm: regular rhythm GI: GI Palp: Yes Soft to palpation Auscultation: normal bowel sounds Skin: General skin exam: normal color Rashes: no rashes Wounds: no wounds Neuro: Other: unresponsive Extrem: General: no clubbing, cyanosis or edema Psych: Other: unresponsive Course Course Emergency Course: discussed wit
[2022-04-28 12:08] LABS: Hematocrit 38.2 % (37.0-47.0); Hemoglobin 13.1 g/dL (12.0-15.0); Immature Platelet Fraction Pct 2.1 % (0.9-11.2); Mean Corpuscular HGB Conc 34.3 g/dl (32-36); Mean Corpuscular Hemoglobin 33.1 pg (26-34); Mean Corpuscular Volume 96.5 fl (80-100); Mean Platelet Volume 9.4 fl (7.4-10.4); Platelet Count Result 105 k/mm3 (150-375); Red Blood Count 3.96 M/mm3 (4.2-5.4); Red Cell Distribution Width 15.9 % (11.5-14.5)
[2022-04-28 12:18] LABS: White Blood Count 1.7 K/mm3 (4.5-10.0)
[2022-04-28 12:19] LABS: Lactic Acid Reflex 2.3 mmol/L (0.7-2.0)
[2022-04-28 12:19] LABS: Alanine Aminotransferase 34 U/L (6-35); Albumin Level 3.6 g/dL (3.5-5.1); Alkaline Phosphatase 78 U/L (38-126); Anion Gap 12 mmol/L (8-16); Aspartate Amino Transferase 33 U/L (14-36); Bilirubin,Total 0.9 mg/dL (0.2-1.3); Blood Urea Nitrogen 11 mg/dL (7-17); Calcium 9.1 mg/dL (8.4-10.2); Carbon Dioxide 25 mmol/L (22-30); Chloride 99 mmol/L (98-107); Estimated Glomerular Filt Rate > 60; Glucose 147 mg/dL (65-110); Potassium 3.7 mmol/L (3.4-5.0); Sodium 136 mmol/L (137-145)
[2022-04-28 12:24] LABS: Appearance Urine Slightly Cloudy (Clear); Bilirubin Urine Negative (Negative); Color Urine Yellow (Yellow); Glucose Urine UA Negative (Negative); Ketones Urine Negative (Negative); Leukocyte Esterase Ur Negative LEU/UL (Negative); Nitrate Urine Positive (Negative); Protein Urine 1+ mg/dL (Negative); Specific Grav Ur >= 1.030 (1.001-1.035); Urobilinogen Urine 0.2 mg/dL (<2.0); pH Urine 5.5 (5.0-9.0)
[2022-04-28 12:28] LABS: Bacteria Urine Trace /hpf; Mucus Urine Rare /lpf; RBC Urine 0-2 /hpf (0-2); Squamous Epithelial Cell Urine Moderate /hpf (Few); WBC Clumps Urine Present /HPF
[2022-04-28 12:35] LABS: Add Urine Microscopic? YES; Blood Urine Trace-Intact (Negative)
[2022-04-28 12:40] LABS: INR 1.1; Prothrombin Time 13.8 Seconds (11.1-14.7)
[2022-04-28 12:41] LABS: Partial Thromboplastin Time 26.3 SECONDS (22.3-36.8)
[2022-04-28 12:43] LABS: Amphetamine Screen Urine Negative (Negative); Barbiturate Screen Urine Negative (Negative); Benzodiazepines Screen Urine Negative (Negative); Cannabinoid Screen Urine Negative (Negative); Cocaine Screen Urine Negative (Negative); Methadone Screen Urine Negative (Negative); Opiate Screen Urine Negative (Negative); Phencyclidine Screen Urine Negative (Negative)
[2022-04-28] MEDS: RAPID SEQUENCE INTUBATION KIT 1 EACH (12:54)
[2022-04-28] MEDS: SODIUM CHLORIDE 0.9% IV 1,000 ML 999 ML IV CONT (12:55)
[2022-04-28 13:02] LABS: SARS-CoV-2 RNA PCR Positive
[2022-04-28 13:03] LABS: Band Neutrophils Percent 15 % (0-6); Eosinophils Absolute Manual 0.01 K/mm3 (0.02-0.5); Eosinophils Percent Manual 1 % (0-4); Lymphocytes Absolute Manual 0.15 K/mm3 (1.1-4.5); Monocytes Absolute Manual 0.11 K/mm3 (0.1-0.90); Monocytes Percent Manual 7 % (3-9); Neutrophils Absolute Manual 1.41 K/mm3 (1.7-7.2); Neutrophils Percent Manual 68 % (46-73); Schistocytes None Seen (NORMAL); Total Cells Counted 100
[2022-04-28 13:04] LABS: Anisocytosis 1+ (NORMAL)
--- NOTE | 2022-04-28 13:24 | PC.NURSE ---
RSI intubation preformed at 1228, Etomidate 20mg, [address]cc[address] per [address] Gan VO. VS BP 151/91, 101 HR, 98% on NRB. 1229 attempt at intubation with GlideScope. 1231 2nd attempt with glydixcope, SPO2 down to 88%, pt manually ventilated with ambu bag and increased SPO2 to 94%. 1233 3rd attempt at GlideScope SPO2 98% HR 110, BP 161/100. 1235 ET tube 7.0, 23 at lip.
[2022-04-28] MEDS: cefTRIAXone 2 GM in SODIUM CHLORIDE 0.9% IV 100 ML 200 ML IVPB (13:38)
[2022-04-28 13:48] LABS: Alveolar/Arterial O2 Gradient 239.8 mmHg; Base Excess ABG -0.8 mEq/l (+/-2.0); Carboxyhemoglobin 0.3 % THb (0-2.0); Fractional Inspired Oxygen 100 %; HCO3 ABG 22.6 mEq/l (22.0-26.0); Methemoglobin ABG 0.4 %THb (0-1.5); Oxygen Content ABG 17.6 %vol (16.0-22.0); Oxygen Saturation ABG 99.9 % (95.0-100.0); Oxyhemoglobin 97.9 % THb (90.0-100.0); PCO2 ABG 33.3 mmHg (35.0-45.0); PO2 ABG 439.9 mmHg (80.0-100.0); Reduced Hemoglobin 1.4 %THb (0-5.0); Total Hemoglobin 11.9 g/dL (12.0-18.0)
[2022-04-28 13:49] LABS: Device VENTILATOR; Modified Allen's Test Pass; Site Drawn RIGHT RADIAL
[2022-04-28 13:50] LABS: Arterial Blood Gas PEEP 5 cmH2O; Arterial Blood Gas Tidal Volume 480 ml; Arterial Blood Gas Vent Mode CMV; Arterial Blood Gas Ventilator rate 15 /MIN
[2022-04-28 13:51] LABS: Arterial Blood Gas Minute Volume 7.7 LPM
--- NOTE | 2022-04-28 14:37 | PC.NURSE ---
[facility] accepted transfer to [place] [id number] Trip # [id number]
[2022-04-28 15:04] LABS: Reflex Lactic Acid Yes or No Add Lactic
[2022-04-28 15:31] LABS: Lactic Acid 1.3 mmol/L (0.7-2.0)
[2022-05-01 13:28] LABS: Prolactin 35.9 ng/mL (***)
== END 2022-04-28 16:20 | disposition short-term general hospital (02) ==
PROVIDERS: Emergency Provider Emergency Medicine; PCP Internal Medicine
DX: A41.9 Sepsis, unspecified organism (principal); U07.1 COVID-19; J96.90 Respiratory failure, unspecified, unspecified whether with hypoxia or hypercapnia; G93.6 Cerebral edema; R41.82 Altered mental status, unspecified; N39.0 Urinary tract infection, site not specified; C71.9 Malignant neoplasm of brain, unspecified; I35.1 Nonrheumatic aortic (valve) insufficiency; J45.909 Unspecified asthma, uncomplicated; E66.9 Obesity, unspecified; R94.31 Abnormal electrocardiogram [ECG] [EKG]; R91.8 Other nonspecific abnormal finding of lung field
CPT/HCPCS: 31500; 36415; 36600; 70450; 80053; 80307; 81001; 82375; 82805; 82948; 83050; 83605; 84146; 85025; 85055; 85610; 85730; 87040; 87147; 87181; 87186; 93005; 96365; 96367; 99291; C9803; J0131; J0330; J0456; J0696; J2310; J7030; U0003; U0005